=== PATIENT | female | born 1955 | race Caucasian/White ===

== ENCOUNTER 2022-10-23 09:50 | Inpatient (IN) ==
[2022-10-23] MEDS ORDERED: 0.9 % SODIUM CHLORIDE 1,000 ML IV ONE ×2 (10:05→11:08)
[2022-10-23 10:31] LABS: POC Calcium, Ionized 1.09 (1.16-1.32); POC Creatinine 6.2 (0.6-1.2); POC Potassium 4.9 (3.3-5.1)
[2022-10-23 11:19] LABS: Basophils # (Auto) 0.02 K/mcL (0.00-0.30); Basophils % (Auto) 0.3 % (0.0-2.0); Eosinophils # (Auto) 0.14 K/mcL (0.00-0.70); Eosinophils % (Auto) 2.4 % (0.0-7.0); Hematocrit 33.8 % (34.1-44.9); Hemoglobin 10.6 g/dL (11.2-15.7); Lymphocytes # (Auto) 0.52 K/mcL (1.50-4.80); Mean Cell Volume 93.4 fL (80.0-100.0); Mean Corpuscular HGB Conc 31.4 g/dL (31.0-36.0); Mean Platelet Volume 10.7 fL (8.8-12.5); Monocytes # (Auto) 0.47 K/mcL (0.10-0.90); Monocytes % (Auto) 8.1 % (1.0-12.0); Neutrophils % (Auto) 78.7 % (38.0-78.0); Platelet Count 336 K/mcL (140-440); RBC 3.62 M/mcL (3.59-5.38); Red Cell Distribution Width 16.4 % (11.5-14.5); WBC 5.8 K/mcL (4.5-11.0)
[2022-10-23 11:32] LABS: ALT/SGPT 18 U/L (<40); AST/SGOT 27 U/L (<32); Albumin 3.1 gm/dL (3.2-5.2); Alkaline Phosphatase 109 U/L (39-117); Bilirubin,Direct 0.2 mg/dL (<0.3); Bilirubin,Total 0.5 mg/dL (0.1-1.0); Globulin 3.9 gm/dL (2.2-3.7)
[2022-10-23 12:45] LABS: POC Calcium, Ionized 1.07 (1.16-1.32); POC Creatinine 5.1 (0.6-1.2); POC Potassium 4.8 (3.3-5.1)
[2022-10-23] MEDS: 0.9 % SODIUM CHLORIDE 1,000 ML IV SCH ×2 (13:11→21:26)
[2022-10-23 14:28] LABS: Appearance,Urine HAZY (Clear); Bilirubin,Urine Negative (Negative); Color,Urine YELLOW; Culture Indicated,Urine No; Glucose,Urine (UA) Negative (Negative); Ketones,Urine 5 mg/dL (Negative); Leukocyte Esterase,Urine Negative /uL (Negative); Mucus,Urine FEW /hpf; Nitrate,Urine Negative (Negative); Protein,Urine Negative (Negative); Specific Gravity,Urine 1.012 (1.000-1.035); Urine Blood Negative (Negative); Urine RBC < 1 /hpf (0-3); Urine Squamous Epithelial Cell 2 /hpf (0-4); Urine WBC 1 /hpf (0-4); Urobilinogen,Urine Negative
[2022-10-23] MEDS ORDERED: HYDROCORTISONE SOD SUCC 100 MG VIAL IV ONE (14:43)
[2022-10-23 15:37] LABS: T4 (Thyroxine) 6.2 ug/dl (5.0-12.0); Thyroid Stimulating Hormone 9.25 uIU/mL (0.27-5.01)
[2022-10-23] MEDS ORDERED: methylPREDNISolone SOD SUCC 125 MG/2 ML VIAL IV ONE (16:56)
[2022-10-23] MEDS ORDERED: ONDANSETRON 4 MG/2 ML VIAL IV PRN (16:56)
[2022-10-23] MEDS ORDERED: ACETAMINOPHEN 325 MG TABLET PO PRN (16:56)
[2022-10-23] MEDS: 0.9 % SODIUM CHLORIDE 10 ML SYRINGE IV SCH ×2 (17:05→21:27)
[2022-10-23 18:54] LABS: Creatine Kinase 82 U/L (24-170)
[2022-10-23] MEDS: SENNOSIDES 1 TABLET PO SCH (21:27)
[2022-10-23] MEDS: HYDROCORTISONE SOD SUCC 100 MG VIAL IV SCH (21:48)
[2022-10-23] MEDS: DOCUSATE SODIUM 100 MG CAPSULE PO SCH (21:49)
[2022-10-24] MEDS: 0.9 % SODIUM CHLORIDE 1,000 ML IV SCH ×4 (01:51→21:27)
[2022-10-24] MEDS: 0.9 % SODIUM CHLORIDE 10 ML SYRINGE IV SCH ×3 (05:37→21:28)
[2022-10-24] MEDS: HYDROCORTISONE SOD SUCC 100 MG VIAL IV SCH (06:07)
[2022-10-24 07:57] LABS: ALT/SGPT 14 U/L (<40); AST/SGOT 16 U/L (<32); Albumin 2.8 gm/dL (3.2-5.2); Albumin/Globulin Ratio 0.9 (1.0-2.3); Alkaline Phosphatase 87 U/L (39-117); Bilirubin,Total 0.3 mg/dL (0.1-1.0); Blood Urea Nitrogen 57 mg/dL (8-23); Calcium 8.2 mg/dL (8.6-10.4); Carbon Dioxide 15 mmol/L (22-30); Chloride 102 mmol/L (96-108); Globulin 3.1 gm/dL (2.2-3.7); Glomerular Filtration Rate 13; Glucose 114 mg/dL (70-105); Iron 31 ug/dL (37-145); TIBC Calculation 151 ug/dl (228-428); Thyroid Stimulating Hormone 2.31 uIU/mL (0.27-5.01); Transferrin % Saturation 21 % (15-50)
[2022-10-24 08:04] LABS: Ferritin 635.1 ng/mL (30.0-400.0)
[2022-10-24] MEDS: DOCUSATE SODIUM 100 MG CAPSULE PO SCH ×2 (08:19→21:28)
[2022-10-24 08:28] LABS: Basophils # (Auto) 0.02 K/mcL (0.00-0.30); Basophils % (Auto) 0.4 % (0.0-2.0); Eosinophils # (Auto) 0 K/mcL (0.00-0.70); Eosinophils % (Auto) 0 % (0.0-7.0); Hematocrit 29.1 % (34.1-44.9); Hemoglobin 8.9 g/dL (11.2-15.7); Lymphocytes # (Auto) 0.35 K/mcL (1.50-4.80); Lymphocytes % (Auto) 6.2 % (15.5-49.0); Mean Cell Volume 96.7 fL (80.0-100.0); Mean Corpuscular HGB Conc 30.6 g/dL (31.0-36.0); Mean Platelet Volume 10.5 fL (8.8-12.5); Monocytes # (Auto) 0.17 K/mcL (0.10-0.90); Neutrophils % (Auto) 89.3 % (38.0-78.0); Platelet Count 241 K/mcL (140-440); RBC 3.01 M/mcL (3.59-5.38); Red Cell Distribution Width 16.8 % (11.5-14.5); WBC 5.7 K/mcL (4.5-11.0)
[2022-10-24 08:39] LABS: Estimated Average Glucose(eAG) 108 mg/dL; Hemoglobin A1C 5.4 % Hgb (4.0-6.0)
[2022-10-24 09:55] LABS: Chloride,Urine Random 52 mmol/L (110-250); Potassium,Urine Random 19.2 mmol/L
[2022-10-24 09:56] LABS: Sodium, Urine Random 66 mmol/L; Uric Acid,Urine Random 37.9 mg/dL (37.0-92.0)
[2022-10-24 10:22] LABS: Osmolality,Urine 401 mOSM/kg (80-1000)
[2022-10-24 11:09] LABS: Appearance,Urine CLEAR (Clear); Bilirubin,Urine Negative (Negative); Color,Urine YELLOW; Culture Indicated,Urine No; Glucose,Urine (UA) Negative (Negative); Ketones,Urine 5 mg/dL (Negative); Leukocyte Esterase,Urine Negative /uL (Negative); Nitrate,Urine Negative (Negative); Protein,Urine Negative (Negative); Specific Gravity,Urine 1.013 (1.000-1.035); Urine Blood Negative (Negative); Urobilinogen,Urine Negative
[2022-10-24] MEDS: SODIUM BICARBONATE 650 MG TABLET PO SCH ×2 (12:02→21:27)
[2022-10-24] MEDS: SENNOSIDES 1 TABLET PO SCH (21:28)
[2022-10-25] MEDS: 0.9 % SODIUM CHLORIDE 1,000 ML IV SCH ×5 (02:21→20:41)
[2022-10-25] MEDS: 0.9 % SODIUM CHLORIDE 10 ML SYRINGE IV SCH ×3 (05:20→20:41)
[2022-10-25 06:52] LABS: Basophils # (Auto) 0.02 K/mcL (0.00-0.30); Basophils % (Auto) 0.4 % (0.0-2.0); Eosinophils # (Auto) 0.17 K/mcL (0.00-0.70); Eosinophils % (Auto) 3.4 % (0.0-7.0); Hematocrit 26.2 % (34.1-44.9); Hemoglobin 8.3 g/dL (11.2-15.7); Lymphocytes # (Auto) 0.87 K/mcL (1.50-4.80); Lymphocytes % (Auto) 17.3 % (15.5-49.0); Mean Cell Volume 92.9 fL (80.0-100.0); Mean Corpuscular HGB Conc 31.7 g/dL (31.0-36.0); Mean Platelet Volume 10.6 fL (8.8-12.5); Monocytes # (Auto) 0.42 K/mcL (0.10-0.90); Monocytes % (Auto) 8.3 % (1.0-12.0); Platelet Count 234 K/mcL (140-440); RBC 2.82 M/mcL (3.59-5.38)
[2022-10-25 07:21] LABS: ALT/SGPT 11 U/L (<40); AST/SGOT 15 U/L (<32); Albumin 2.6 gm/dL (3.2-5.2); Albumin/Globulin Ratio 0.9 (1.0-2.3); Alkaline Phosphatase 69 U/L (39-117); Bilirubin,Total 0.3 mg/dL (0.1-1.0); Blood Urea Nitrogen 34 mg/dL (8-23); Carbon Dioxide 20 mmol/L (22-30); Chloride 110 mmol/L (96-108); Globulin 2.9 gm/dL (2.2-3.7); Glomerular Filtration Rate 28; Glucose 107 mg/dL (70-105)
[2022-10-25] MEDS: LEVOTHYROXINE 50 MCG TABLET PO SCH (08:49)
[2022-10-25] MEDS: traMADol 50 MG TABLET PO SCH (08:50)
[2022-10-25] MEDS: predniSONE 5 MG TABLET PO SCH (08:50)
[2022-10-25] MEDS: DOCUSATE SODIUM 100 MG CAPSULE PO SCH ×2 (08:50→20:41)
[2022-10-25] MEDS: SODIUM BICARBONATE 650 MG TABLET PO SCH ×3 (08:50→17:25)
[2022-10-25] MEDS: RIVAROXABAN 20 MG TABLET PO SCH (08:50)
[2022-10-25] MEDS: SENNOSIDES 1 TABLET PO SCH (20:41)
[2022-10-26] MEDS: 0.9 % SODIUM CHLORIDE 1,000 ML IV SCH (02:33)
[2022-10-26] MEDS: 0.9 % SODIUM CHLORIDE 10 ML SYRINGE IV SCH ×3 (06:51→20:44)
[2022-10-26 06:57] LABS: Basophils # (Auto) 0.02 K/mcL (0.00-0.30); Basophils % (Auto) 0.5 % (0.0-2.0); Eosinophils # (Auto) 0.22 K/mcL (0.00-0.70); Eosinophils % (Auto) 5.3 % (0.0-7.0); Hematocrit 27.3 % (34.1-44.9); Hemoglobin 8.5 g/dL (11.2-15.7); Lymphocytes # (Auto) 1.11 K/mcL (1.50-4.80); Lymphocytes % (Auto) 26.6 % (15.5-49.0); Mean Cell Volume 96.1 fL (80.0-100.0); Mean Corpuscular HGB Conc 31.1 g/dL (31.0-36.0); Mean Platelet Volume 9.8 fL (8.8-12.5); Monocytes # (Auto) 0.24 K/mcL (0.10-0.90); Monocytes % (Auto) 5.7 % (1.0-12.0); Platelet Count 194 K/mcL (140-440); RBC 2.84 M/mcL (3.59-5.38); WBC 4.2 K/mcL (4.5-11.0)
[2022-10-26 07:03] LABS: ALT/SGPT 14 U/L (<40); AST/SGOT 22 U/L (<32); Albumin 2.4 gm/dL (3.2-5.2); Albumin/Globulin Ratio 0.8 (1.0-2.3); Alkaline Phosphatase 64 U/L (39-117); Bilirubin,Total 0.3 mg/dL (0.1-1.0); Blood Urea Nitrogen 22 mg/dL (8-23); Calcium 7.7 mg/dL (8.6-10.4); Carbon Dioxide 19 mmol/L (22-30); Chloride 108 mmol/L (96-108); Globulin 2.9 gm/dL (2.2-3.7); Glomerular Filtration Rate 46; Glucose 94 mg/dL (70-105)
[2022-10-26] MEDS: LEVOTHYROXINE 50 MCG TABLET PO SCH (08:06)
[2022-10-26] MEDS: DOCUSATE SODIUM 100 MG CAPSULE PO SCH ×2 (09:21→20:44)
[2022-10-26] MEDS: SODIUM BICARBONATE 650 MG TABLET PO SCH ×3 (09:21→17:48)
[2022-10-26] MEDS: traMADol 50 MG TABLET PO SCH (09:22)
[2022-10-26] MEDS: predniSONE 5 MG TABLET PO SCH (09:22)
[2022-10-26] MEDS: RIVAROXABAN 20 MG TABLET PO SCH (09:22)
[2022-10-26] MEDS: SENNOSIDES 1 TABLET PO SCH (20:44)
[2022-10-27] MEDS: 0.9 % SODIUM CHLORIDE 10 ML SYRINGE IV SCH ×4 (05:29→20:37)
[2022-10-27 06:44] LABS: Basophils # (Auto) 0.03 K/mcL (0.00-0.30); Basophils % (Auto) 0.5 % (0.0-2.0); Eosinophils # (Auto) 0.25 K/mcL (0.00-0.70); Eosinophils % (Auto) 4.5 % (0.0-7.0); Hematocrit 26.9 % (34.1-44.9); Hemoglobin 8.5 g/dL (11.2-15.7); Lymphocytes # (Auto) 1.39 K/mcL (1.50-4.80); Mean Cell Volume 93.7 fL (80.0-100.0); Mean Corpuscular HGB Conc 31.6 g/dL (31.0-36.0); Mean Platelet Volume 10.3 fL (8.8-12.5); Monocytes # (Auto) 0.39 K/mcL (0.10-0.90); Neutrophils % (Auto) 60.1 % (38.0-78.0); Platelet Count 206 K/mcL (140-440); RBC 2.87 M/mcL (3.59-5.38); Red Cell Distribution Width 16.8 % (11.5-14.5); WBC 5.6 K/mcL (4.5-11.0)
[2022-10-27 06:56] LABS: ALT/SGPT 24 U/L (<40); AST/SGOT 29 U/L (<32); Albumin 2.4 gm/dL (3.2-5.2); Albumin/Globulin Ratio 0.8 (1.0-2.3); Alkaline Phosphatase 67 U/L (39-117); Bilirubin,Total 0.3 mg/dL (0.1-1.0); Blood Urea Nitrogen 19 mg/dL (8-23); Carbon Dioxide 22 mmol/L (22-30); Chloride 106 mmol/L (96-108); Globulin 2.9 gm/dL (2.2-3.7); Glomerular Filtration Rate 51; Glucose 94 mg/dL (70-105)
[2022-10-27] MEDS: LEVOTHYROXINE 50 MCG TABLET PO SCH (07:45)
[2022-10-27] MEDS: FERROUS SULFATE 325 MG TABLET PO SCH (09:31)
[2022-10-27] MEDS: RIVAROXABAN 20 MG TABLET PO SCH (09:31)
[2022-10-27] MEDS: traMADol 50 MG TABLET PO SCH (09:31)
[2022-10-27] MEDS: predniSONE 5 MG TABLET PO SCH (09:31)
[2022-10-27] MEDS: SODIUM BICARBONATE 650 MG TABLET PO SCH ×3 (09:31→17:28)
[2022-10-27] MEDS: DOCUSATE SODIUM 100 MG CAPSULE PO SCH ×2 (09:31→20:32)
[2022-10-27] MEDS: SENNOSIDES 1 TABLET PO SCH (20:32)
[2022-10-28 06:45] LABS: Basophils # (Auto) 0.04 K/mcL (0.00-0.30); Basophils % (Auto) 0.7 % (0.0-2.0); Eosinophils # (Auto) 0.25 K/mcL (0.00-0.70); Eosinophils % (Auto) 4.6 % (0.0-7.0); Hematocrit 26.5 % (34.1-44.9); Hemoglobin 8.3 g/dL (11.2-15.7); Lymphocytes # (Auto) 1.68 K/mcL (1.50-4.80); Mean Cell Volume 94.6 fL (80.0-100.0); Mean Corpuscular HGB Conc 31.3 g/dL (31.0-36.0); Mean Platelet Volume 10.3 fL (8.8-12.5); Monocytes # (Auto) 0.33 K/mcL (0.10-0.90); Monocytes % (Auto) 6.1 % (1.0-12.0); Neutrophils % (Auto) 55.2 % (38.0-78.0); Platelet Count 227 K/mcL (140-440); WBC 5.4 K/mcL (4.5-11.0)
[2022-10-28 07:00] LABS: ALT/SGPT 26 U/L (<40); AST/SGOT 29 U/L (<32); Albumin 2.4 gm/dL (3.2-5.2); Albumin/Globulin Ratio 0.9 (1.0-2.3); Alkaline Phosphatase 70 U/L (39-117); Bilirubin,Total 0.3 mg/dL (0.1-1.0); Blood Urea Nitrogen 18 mg/dL (8-23); Carbon Dioxide 24 mmol/L (22-30); Chloride 107 mmol/L (96-108); Globulin 2.7 gm/dL (2.2-3.7); Glomerular Filtration Rate 58; Glucose 91 mg/dL (70-105)
[2022-10-28] MEDS: LEVOTHYROXINE 50 MCG TABLET PO SCH (07:58)
[2022-10-28] MEDS: FERROUS SULFATE 325 MG TABLET PO SCH (08:56)
[2022-10-28] MEDS: predniSONE 5 MG TABLET PO SCH (08:56)
[2022-10-28] MEDS: traMADol 50 MG TABLET PO SCH (08:56)
[2022-10-28] MEDS: RIVAROXABAN 20 MG TABLET PO SCH (08:57)
[2022-10-28] MEDS: DOCUSATE SODIUM 100 MG CAPSULE PO SCH (08:57)
[2022-10-28] MEDS ORDERED: amLODIPine 5 MG TABLET PO SCH (09:00)
[2022-10-28] MEDS: SODIUM BICARBONATE 650 MG TABLET PO SCH (09:01)
[2022-10-28] MEDS ORDERED: PANTOPRAZOLE 40 MG PACKET PO SCH (13:15)
== END 2022-10-28 15:02 | DRG 312 ==
LOC: ED 09:50 → MEDSUR 15:40
PROVIDERS: ADMIT Internal Medicine; ATTEND Internal Medicine